=== PATIENT | female | born 1960 | race Caucasian/White ===

== ENCOUNTER → 2017-12-23 | Outpatient (REF) ==
[~2017-12-23] MED LIST: AMLO-96 PO; HYDR-2966 PO; IBUP400T13 PO; METXR500 PO; NAPR220C12 PO; OXYC-869 PO
--- NOTE | 2017-12-23 15:46 | RADIOLOGY IMAGING REPORT ---
FACILITY: [facility] - [place] PATIENT NAME: Dwight Rodriguez : 1960 MR: [id number] V: [id number] EXAM DATE: ORDERING PHYSICIAN: ALEXANDER BRITO TECHNOLOGIST: [facility] Patient: Dwight Rodriguez : 1960 Visit/Account:[id number] Date of Sevice: 12/23/2017 3 views left knee and 3 views right knee Indication: Knee pain. Comparison: None available Findings: Right knee: 3 views of the right knee are obtained. No acute fracture or dislocation is identified. There is mode rate to severe 3 compartment osteoarthritis. Joint space narrowing is most pronounced in the medial c ompartment. No joint effusion. Left knee: 3 views of the left knee are obtained. No acute fracture or dislocation is identified. There is moder ate to severe 3 compartment osteoarthritis most pronounced in the medial and patellofemoral compartme nts. There is a small joint effusion. No definite joint bodies. Impression: 1. Moderate to severe 3 compartment osteoarthritis of the bilateral knees. Report Dictated By: Arvin Taylor at 12/23/2017 3:40 PM Report E-Signed By: Arvin Taylor at 12/23/2017 3:43 PM WSN:[id number]
== END ==
LOC: RAD 14:53
PROVIDERS: ATTEND Orthopaedic Surgery Orthopaedic Surgery of the Spine
DX: M17.0 Bilateral primary osteoarthritis of knee (principal)

== ENCOUNTER 2018-01-27 08:29 | Emergency (ER) | payer SELFPAY ==
--- NOTE | 2018-01-27 08:34 | ER Report ---
History and Physical Time Seen By MD: 08:33 HPI/ROS CHIEF COMPLAINT: Nausea, vomiting blood HISTORY OF PRESENT ILLNESS: Patient is a 57-year-old female who reports to the emergency department for episode of vomiting blood. Patient states she did not sleep well last evening but relates this to drinking "too much caffeine over the weekend". She denies any abdominal pain or chest pain. Around 5:30 6:00 this morning she felt nauseous and had an episode of vomiting that was noted for some "pink blood". She states that after she vomited she felt better and ate a brownie. Approximately 30 minutes later she threw up one more time and had a similar presentation of blood-tinged vomit. She denies any epigastric or abdominal pain she denies chest pain or shortness of breath. Currently she is symptom free. Patient has not taken any [id number] NSAIDs since September 2017. She denies any alcohol use. REVIEW OF SYSTEMS: Constitutional: No fever, no chills. Eyes: No discharge. ENT: No sore throat. Cardiovascular: No chest pain, no palpitations. Respiratory: No cough, no shortness of breath. Gastrointestinal: No abdominal pain, hematemesis Genitourinary: No hematuria. Musculoskeletal: No back pain. Skin: No rashes. Neurological: [No headache.] Allergies: Coded Allergies: No Known Drug Allergies (Unverified , 12/15/15) Home Meds Reported Medications Paroxetine Hcl (PAXIL) 20 Mg Tablet, 20 MG PO QDAY, TAB 01/27/18 Lisinopril (LISINOPRIL) 10 Mg Tablet, 10 MG PO QDAY, TAB 01/27/18 Glyburide (GLYBURIDE) 5 Mg Tab, 5 MG FT, TAB 01/27/18 Atorvastatin Calcium (LIPITOR) 40 Mg Tablet, 1 TAB PO QDAY, TAB 01/27/18 Amlodipine Besylate (AMLODIPINE BESYLATE) 10 Mg Tablet, 1 TAB PO QDAY, TAB 01/27/18 Hydrochlorothiazide (HYDROCHLOROTHIAZIDE) 25 Mg Tablet, 1 TAB PO QDAY, TAB 03/11/15 Discontinued Reported Medications Naproxen Sodium (ALEVE) 220 Mg Capsule, 550 MG PO BID, CAPSULE 06/25/16 Metformin Hcl (METFORMIN HCL ER) 500 Mg Tabcr, 1 TAB PO BID, TAB 03/11/15 Discontinued Scripts Amlodipine Besylate (AMLODIPINE BESYLATE) 5 Mg Tablet, 1 TAB PO QDAY, #30 TAB 0 Refills TAKE ONE TABLET BY MOUTH EVERY DAY Prov:TERRIE ALVAREZ MD 12/04/14 Past Medical/Surgical History Past medical history for headache, osteoarthritis, type II diabetes, depression , cholecystectomy. Hx Smoking: No Smoking Status: Never Smoker Hx Substance Use Disorder: No Hx Alcohol Use: No Constitutional Vital Sign - Last 24 Hours 01/27/18 08:35 Temp 97.5 Pulse 90 Resp 18 B/P (MAP) 148/94 Pulse Ox 91 O2 Delivery Room Air Physical Exam General Appearance: The patient is alert, has no immediate need for airway protection and no signs of toxicity. Eyes: Pupils equal and round no pallor or injection. ENT, Mouth: Mucous membranes are moist. Respiratory: There are no retractions, lungs are clear to auscultation. Cardiovascular: Regular rate and rhythm. Gastrointestinal: Abdomen is soft and non tender, no masses, bowel sounds normal. Neurological: Awake alert nontoxic Skin: Warm and dry, no rashes. Musculoskeletal: Neck is supple non tender. Extremities are nontender, nonswollen and have full range of motion. Medical Decision Making Data Points Result Diagram: 01/27/18 0855 01/27/18 0855 Laboratory Hematology Test 01/27/18 08:55 Red Blood Count 4.61 M/uL (4.17-5.56) Mean Corpuscular Volume 88.0 fL (80.0-96.0) Mean Corpuscular Hemoglobin 29.8 pg (26.0-33.0) Mean Corpuscular Hemoglobin Concent 33.9 g/dL (32.0-36.0) Red Cell Distribution Width 14.4 % (11.5-14.5) Mean Platelet Volume 8.4 fL (7.2-11.1) Neutrophils (%) (Auto) 77.2 % (39.4-72.5) Lymphocytes (%) (Auto) 15.9 % (17.6-49.6) Monocytes (%) (Auto) 4.7 % (4.1-12.4) Eosinophils (%) (Auto) 1.6 % (0.4-6.7) Basophils (%) (Auto) 0.6 % (0.3-1.4) Nucleated RBC Relative Count (auto) 0.0 /100WBC Neutrophils # (Auto) 7.7 K/uL (2.0-7.4) Lymphocytes # (Auto) 1.6 K/uL (1.3-3.6) Monocytes # (Auto) 0.5 K/uL (0.3-1.0) Eosinophils # (Auto) 0.2 K/uL (0.0-0.5) Basophils # (Auto) 0.1 K/uL (0.0-0.1) Nucleated RBC Absolute Count (auto) 0.00 K/uL Sodium Level 142 mmol/L (137-145) Potassium Level 3.5 mmol/L (3.5-5.0) Chloride Level 101 mmol/L (98-107) Carbon Dioxide Level 26 mmol/L (22-31) Blood Urea Nitrogen 20 mg/dl (7-18) Creatinine 1.20 mg/dl (0.52-1.04) Glomerular Filtration Rate Calc 46.6 Random Glucose 182 mg/dl (75-110) Calcium Level 9.2 mg/dl (8.4-10.2) Total Bilirubin 0.3 mg/dl (0.2-1.3) Aspartate Amino Transf (AST/SGOT) 24 U/L (0-35) Alanine Aminotransferase (ALT/SGPT) 29 U/L (0-56) Alkaline Phosphatase 106 U/L (0-126) Total Protein 7.8 g/dl (6.3-8.2) Albumin 4.0 g/dl (3.5-5.0) Lipase 168 U/L (23-300) Helicobacter pylori IgG Antibody Negative (NEGATIVE) Chemistry Test 01/27/18 08:55 White Blood Count 10.0 k/uL (4.5-11.0) Red Blood Count 4.61 M/uL (4.17-5.56) Hemoglobin 13.8 g/dL (12.0-16.0) Hematocrit 40.6 % (34.0-47.0) Mean Corpuscular Volume 88.0 fL (80.0-96.0) Mean Corpuscular Hemoglobin 29.8 pg (26.0-33.0) Mean Corpuscular Hemoglobin Concent 33.9 g/dL (32.0-36.0) Red Cell Distribution Width 14.4 % (11.5-14.5) Platelet Count 318 K/uL (150-450) Mean Platelet Volume 8.4 fL (7.2-11.1) Neutrophils (%) (Auto) 77.2 % (39.4-72.5) Lymphocytes (%) (Auto) 15.9 % (17.6-49.6) Monocytes (%) (Auto) 4.7 % (4.1-12.4) Eosinophils (%) (Auto) 1.6 % (0.4-6.7) Basophils (%) (Auto) 0.6 % (0.3-1.4) Nucleated RBC Relative Count (auto) 0.0 /100WBC Neutrophils # (Auto) 7.7 K/uL (2.0-7.4) Lymphocytes # (Auto) 1.6 K/uL (1.3-3.6) Monocytes # (Auto) 0.5 K/uL (0.3-1.0) Eosinophils # (Auto) 0.2 K/uL (0.0-0.5) Basophils # (Auto) 0.1 K/uL (0.0-0.1) Nucleated RBC Absolute Count (auto) 0.00 K/uL Glomerular Filtration Rate Calc 46.6 Calcium Level 9.2 mg/dl (8.4-10.2) Total Bilirubin 0.3 mg/dl (0.2-1.3) Aspartate Amino Transf (AST/SGOT) 24 U/L (0-35) Alanine Aminotransferase (ALT/SGPT) 29 U/L (0-56) Alkaline Phosphatase 106 U/L (0-126) Total Protein 7.8 g/dl (6.3-8.2) Albumin 4.0 g/dl (3.5-5.0) Lipase 168 U/L (23-300) Helicobacter pylori IgG Antibody Negative (NEGATIVE) EKG/Imaging Imaging X-ray: Chest PA and lateral was obtained. I viewed the images myself on the PACS system. My interpretation of the images is: Negative. The radiologist interpretation had no clinically significant variation from this interpretation. ED Course/Re-evaluation Clinical Indication for ER IV: IV Access ED Course 01/27/2018 9:00:39 am plan at this time will be to check CBC and comprehensive metabolic panel, lipase, H. pylori test. We will perform chest x-ray. We will give IV Pepcid. Decision to Disposition Date: Jan 27, 2018 Decision to Disposition Time: 09:33 Depart Departure Latest Vital Signs Vital Signs Date Time Temp Pulse Resp B/P (MAP) Pulse Ox O2 Delivery O2 Flow Rate FiO2 01/27/18 08:35 97.5 90 18 148/94 91 Room Air Impression: Primary Impression: Hematemesis Condition: Improved Disposition: HOME OR SELF-CARE New Scripts Ondansetron Hcl (ZOFRAN) 4 Mg Tablet 4 MG PO Q8H for Nausea, #15 TAB 0 Refills Prov: VENKATESH LIANG MD 01/27/18 Famotidine (PEPCID) 20 Mg Tablet 20 MG PO QDAY, #10 TAB 0 Refills Prov: VENKATESH LIANG MD 01/27/18 Departure Forms: ER Transition Record, Medications Reconciliation, Off Work/ School Form, School or Work Release?: Work Number of days to be released: 1 Patient Portal Information Patient Instructions: Hematemesis (ED) Additional Instructions: Follow-up as scheduled this Saturday at the [facility]. Problem Qualifiers Primary Impression: Hematemesis Nausea presence: with nausea Qualified Codes: K92.0 - Hematemesis VENKATESH LIANG MD Jan 27, 2018 08:34
[2018-01-27] MEDS ORDERED: PARO-243 PO (08:42)
[2018-01-27] MEDS ORDERED: LISI-362 PO (08:42)
[2018-01-27] MEDS ORDERED: AMLO-99 PO (08:42)
[2018-01-27] MEDS ORDERED: ATOR40TA24 PO (08:42)
[2018-01-27] MEDS ORDERED: GLY5 FT (08:42)
[2018-01-27] MEDS ORDERED: FAMOTIDINE(*) 20MG/50ML PREMIX 50 ML IVPB ONE (08:55)
[2018-01-27 09:09] LABS: PLATELET COUNT, AUTOMATED 318 K/uL (150-450)
--- NOTE | 2018-01-27 09:29 | RADIOLOGY IMAGING REPORT ---
FACILITY: [facility] - [place] PATIENT NAME: Dwight Rodriguez : 1960 MR: [id number] V: [id number] EXAM DATE: ORDERING PHYSICIAN: VENKATESH LIANG TECHNOLOGIST: Location: [facility] Patient: Dwight Rodriguez : 1960 Visit/Account:[id number] Date of Sevice: 01/27/2018 Exam type: CHEST PA AND LAT History: Chest pain Comparison: June 25, 2016. Findings: Again noted is a small amount left basilar scarring. There is no evidence of acute appearing infiltr ates, pleural effusions or overt pulmonary edema. Cardiac silhouette is borderline enlarged but unch anged. There are spondylotic changes in the thoracic spine IMPRESSION: 1. No acute cardiac pulmonary process is seen Small amount left basilar scarring unchanged Borderline cardiomegaly unchanged Report Dictated By: Teri Morales MD at 01/27/2018 9:24 AM Report E-Signed By: Teri Morales MD at 01/27/2018 9:26 AM WSN:[id number]
[2018-01-27] MEDS ORDERED: FAMO20TA28 PO (09:36)
[2018-01-27] MEDS ORDERED: ONDA4TAB97 PO (09:36)
[2018-01-27 09:39] VITALS: BP 135/90
== END 2018-01-27 09:45 | disposition home or self-care (01) ==
LOC: ER 08:41
DX: K92.0 Hematemesis (principal)
CPT/HCPCS: 71046; 83690; 85025; 86677; 96365; 99283; J3490; 82040; 82247; 82310; 82374; 82435; 82565; 82947; 84075; 84132; 84155; 84295; 84450; 84460; 84520

== ENCOUNTER 2019-03-20 07:39 | Emergency (ER) | payer SELFPAY ==
[~2019-03-20 07:39] MED LIST changes: +AMLO-125 PO; +AMLO-127 PO; -AMLO-96 PO; +ATOR40TA24 PO; +FAMO20TA28 PO; +GLY5 FT; +LISI-362 PO; +ONDA4TAB97 PO; +PARO-243 PO
--- NOTE | 2019-03-20 07:44 | ER Report ---
History and Physical Time Seen By MD: 07:40 HPI/ROS CHIEF COMPLAINT: Shortness breath, anxiety HISTORY OF PRESENT ILLNESS: Patient is a 59-year-old female here with complaints of shortness of breath, near-syncope, anxiety. Patient reportedly was walking to her daughter's house when she became short of breath, lightheaded. She has had a similar episode in the past which she attributed to an anxiety attack. Patient does have a history of hypertension, hyperlipidemia. Patient is afebrile, hemodynamically stable at time of evaluation. Denies chest pain, nausea, vomiting. REVIEW OF SYSTEMS: Constitutional: No fever, no chills. Eyes: No discharge. ENT: No sore throat. Cardiovascular: No chest pain, no palpitations. Respiratory: No cough, + shortness of breath. Gastrointestinal: No abdominal pain, no vomiting. Genitourinary: No hematuria. Musculoskeletal: No back pain. Skin: No rashes. Neurological: No headache. Allergies: Coded Allergies: No Known Drug Allergies (Unverified , 12/15/15) Home Meds Reported Medications Glyburide (GLYBURIDE) 5 Mg Tab, 5 MG FT PRN for BID, TAB 04/12/18 Paroxetine Hcl (PAXIL) 20 Mg Tablet, 20 MG PO QDAY, TAB 01/27/18 Lisinopril (LISINOPRIL) 10 Mg Tablet, 10 MG PO QDAY, TAB 01/27/18 Glyburide (GLYBURIDE) 5 Mg Tab, 5 MG FT, TAB 01/27/18 Amlodipine Besylate (AMLODIPINE BESYLATE) 10 Mg Tablet, 1 TAB PO QDAY, TAB 01/27/18 Hydrochlorothiazide (HYDROCHLOROTHIAZIDE) 25 Mg Tablet, 1 TAB PO QDAY, TAB 03/11/15 Hx Smoking: No Smoking Status: Never Smoker Hx Substance Use Disorder: No Hx Alcohol Use: No Constitutional Vital Sign - Last 24 Hours 03/20/19 03/20/19 03/20/19 03/20/19 07:39 07:42 07:53 08:00 Temp 98.2 Pulse 91 108 Resp 18 B/P (MAP) 153/91 (111) 153/91 116/75 (89) Pulse Ox 87 O2 Delivery Room Air O2 Flow Rate 2.0 8/16/19 8/16/19 8/16/19 8/16/19 08:09 08:24 08:30 08:39 Pulse 90 88 90 Resp 14 19 22 B/P (MAP) 110/74 (86) Pulse Ox 95 95 Physical Exam General Appearance: The patient is alert, has no immediate need for airway protection and no signs of toxicity. No acute distress Eyes: Pupils equal and round no pallor or injection. ENT, Mouth: Mucous membranes are moist. Respiratory: There are no retractions, lungs are clear to auscultation. Cardiovascular: Regular rate and rhythm. Gastrointestinal: Abdomen is soft and non tender, no masses, bowel sounds normal. Neurological: No focal neurological deficits, cranial nerves intact Skin: Warm and dry, no rashes. Musculoskeletal: Neck is supple non tender. Extremities are nontender, nonswollen and have full range of motion. DIFFERENTIAL DIAGNOSIS: After history and physical exam differential diagnosis was considered for shortness of breath including but not limited to pulmonary infectious process, COPD, asthma, pulmonary embolus and congestive heart fail ure, anxiety Medical Decision Making Data Points Result Diagram: 03/20/19 0743 03/20/19 0743 Laboratory Hematology Test 03/20/19 07:43 White Blood Count 7.2 k/uL (4.5-11.0) Red Blood Count 4.71 M/uL (4.17-5.56) Hemoglobin 14.0 g/dL (12.0-16.0) Hematocrit 42.0 % (34.0-47.0) Mean Corpuscular Volume 89.1 fL (80.0-96.0) Mean Corpuscular Hemoglobin 29.8 pg (26.0-33.0) Mean Corpuscular Hemoglobin Concent 33.4 g/dL (32.0-36.0) Red Cell Distribution Width 14.0 % (11.5-14.5) Platelet Count 319 K/uL (150-450) Mean Platelet Volume 8.4 fL (7.2-11.1) Neutrophils (%) (Auto) 73.1 % (39.4-72.5) H Lymphocytes (%) (Auto) 18.5 % (17.6-49.6) Monocytes (%) (Auto) 5.3 % (4.1-12.4) Eosinophils (%) (Auto) 2.5 % (0.4-6.7) Basophils (%) (Auto) 0.6 % (0.3-1.4) Nucleated RBC Relative Count (auto) 0.0 /100WBC Neutrophils # (Auto) 5.2 K/uL (2.0-7.4) Lymphocytes # (Auto) 1.3 K/uL (1.3-3.6) Monocytes # (Auto) 0.4 K/uL (0.3-1.0) Eosinophils # (Auto) 0.2 K/uL (0.0-0.5) Basophils # (Auto) 0.0 K/uL (0.0-0.1) Nucleated RBC Absolute Count (auto) 0.00 K/uL Chemistry Test 03/20/19 07:43 Sodium Level 140 mmol/L (137-145) Potassium Level 3.5 mmol/L (3.5-5.0) Chloride Level 103 mmol/L (98-107) Carbon Dioxide Level 25 mmol/L (22-31) Blood Urea Nitrogen 19 mg/dl (7-18) Creatinine 1.30 mg/dl (0.52-1.04) Glomerular Filtration Rate Calc 42.2 Random Glucose 140 mg/dl (75-110) Calcium Level 9.6 mg/dl (8.4-10.2) Total Bilirubin 0.8 mg/dl (0.2-1.3) Aspartate Amino Transf (AST/SGOT) 40 U/L (0-35) Alanine Aminotransferase (ALT/SGPT) 56 U/L (0-56) Alkaline Phosphatase 131 U/L (0-126) Troponin I < 0.012 ng/ml Total Protein 8.3 g/dl (6.3-8.2) Albumin 4.6 g/dl (3.5-5.0) Coagulation Test 03/20/19 07:43 D-Dimer Quantitative (PE/DVT) 0.98 ug/ml (0-0.50) Urinalysis Test 03/20/19 09:23 EKG/Imaging Imaging FACILITY: [facility] - [place] PATIENT NAME: Dwight Rodriguez : 1960 MR: [id number] V: [id number] EXAM DATE: ORDERING PHYSICIAN: LESA COLLAZO TECHNOLOGIST: Location: [facility] - [place] Patient: Dwight Rodriguez : 1960 Visit/Account:[id number] Date of Sevice: 03/20/2019 CT CTA CHEST W & W/O CON HISTORY: Shortness of breath ADDITIONAL HISTORY: None. TECHNIQUE: CTA chest with contrast. 3D coronal slab MIPs and 2D reconstructions in the coronal and sagittal planes were also created. One of the following dose optimization techniques was utilized in the performance of this exam: automated exposure control; adjustment of the mA and/or kv according to patient size; or use of iterative reconstruction technique. Specific details can be referenced in the facility's radiology CT exam operational policy. CONTRAST: 75 mL of Isovue-370 COMPARISON: None. FINDINGS: Vessels: No acute filling defect within the main, lobar or segmental pulmonary arteries. Lower neck: Negative. Heart and pericardium: Negative Mediastinum/hilum/lymph nodes: Negative. Lungs/pleura: Negative. Visualized upper abdomen: Cholecystectomy. Probable hepatic steatosis. Bones/soft tissues: Negative. Other findings: None significant IMPRESSION: 1. Negative examination for acute pulmonary embolism. 2. No other acute chest process identified. Report Dictated By: Rocco Catalan MD at 03/20/2019 9:10 AM Report E-Signed By: Rocco Catalan MD at 03/20/2019 9:18 AM WSN:[id number] ED Course/Re-evaluation ED Course Patient is a 59-year-old female here with complaints of shortness breath, near- syncope, anxiety which started acutely while the patient was walking to her daughter's house. Patient did have a previous episode similar to this which she attributed to anxiety attack. Chest x-ray was initially completed and showed no acute findings. Labs were remarkable for an elevated d-dimer. CT PE came back negative for pulmonary embolism. Patient was well-appearing at time of discharge. Return cautions provided. Close PCP follow-up recommended. Decision to Disposition Date: Mar 20, 2019 Decision to Disposition Time: 09:29 Depart Departure Latest Vital Signs Vital Signs Date Time Temp Pulse Resp B/P (MAP) Pulse Ox O2 Delivery O2 Flow Rate FiO2 03/20/19 08:39 90 22 03/20/19 08:30 110/74 (86) 03/20/19 08:24 95 03/20/19 07:53 2.0 03/20/19 07:42 98.2 Room Air Impression: Primary Impression: Shortness of breath Condition: Improved Disposition: HOME OR SELF-CARE Patient Instructions: Dyspnea (GEN) Additional Instructions: Please follow up closely with your primary care provider. Please return promptly if you develop shortness breath, fevers, chest pain, nausea, vomiting. LESA COLLAZO DO Mar 20, 2019 07:44
[2019-03-20] MEDS ORDERED: NS(*) 0.9% 1000 ML BAG 1,000 ML IV ONE (08:01)
[2019-03-20] MEDS ORDERED: LORazepam 2 MG/ML VIAL IVP ONE (08:05)
[2019-03-20 08:18] LABS: PLATELET COUNT, AUTOMATED 319 K/uL (150-450)
--- NOTE | 2019-03-20 08:29 | RADIOLOGY IMAGING REPORT ---
FACILITY: [facility] PATIENT NAME: Dwight Rodriguez : 1960 MR: [id number] V: [id number] EXAM DATE: ORDERING PHYSICIAN: LESA COLLAZO TECHNOLOGIST: Location: [facility] - [place] Patient: Dwight Rodriguez : 1960 Visit/Account:[id number] Date of Sevice: 03/20/2019 Exam type: CHEST SINGLE AP History: Anxiety attack Comparison: January 27, 2018. Findings: Cardiac silhouette appears mildly enlarged. There is no evidence of overt pulmonary edema or pleural effusions. No evidence of acute-appearing pulmonary consolidation. The trachea is in midline IMPRESSION: 1. Mild cardiomegaly although no evidence of overt pulmonary edema or acute pulmonary infiltrates Report Dictated By: Teri Morales MD at 03/20/2019 8:18 AM Report E-Signed By: Teri Morales MD at 03/20/2019 8:20 AM WSN:[email or web address]
[2019-03-20] MEDS ORDERED: NS(*) 0.9% 50 ML BAG 50 ML ONE (08:48)
[2019-03-20] MEDS ORDERED: IOPAMIDOL 76% 100 ML INFUS BTL 100 ML ONE (08:48)
--- NOTE | 2019-03-20 09:27 | RADIOLOGY IMAGING REPORT ---
FACILITY: [facility] PATIENT NAME: Dwight Rodriguez : 1960 MR: [id number] V: [id number] EXAM DATE: ORDERING PHYSICIAN: LESA COLLAZO TECHNOLOGIST: Location: [facility] Patient: Dwight Rodriguez : 1960 Visit/Account:[id number] Date of Sevice: 03/20/2019 CT CTA CHEST W & W/O CON HISTORY: Shortness of breath ADDITIONAL HISTORY: None. TECHNIQUE: CTA chest with contrast. 3D coronal slab MIPs and 2D reconstructions in the coronal and sagittal planes were also created. One of the following dose optimization techniques was utilized in the performance of this exam: automated exposure control; adjustment of the mA and/or kv according to patient size; or use of iterative reconstruction technique. Specific details can be referenced in [facility]'s radiology CT exam operational policy. CONTRAST: 75 mL of Isovue-370 COMPARISON: None. FINDINGS: Vessels: No acute filling defect within the main, lobar or segmental pulmonary arteries. Lower neck: Negative. Heart and pericardium: Negative Mediastinum/hilum/lymph nodes: Negative. Lungs/pleura: Negative. Visualized upper abdomen: Cholecystectomy. Probable hepatic steatosis. Bones/soft tissues: Negative. Other findings: None significant IMPRESSION: 1. Negative examination for acute pulmonary embolism. 2. No other acute chest process identified. Report Dictated By: Rocco Catalan MD at 03/20/2019 9:10 AM Report E-Signed By: Rocco Catalan MD at 03/20/2019 9:18 AM WSN:[id number]
[2019-03-20 09:30] VITALS: BP 154/94
--- NOTE | 2019-03-20 10:18 | EKG ---
FACILITY: [facility] - [place] PATIENT NAME: MIGUEL ÁNGEL OLVERA : [id number] MR: [id number] V: [id number] EXAM DATE: ORDERING PHYSICIAN: LESA COLLAZO TECHNOLOGIST: YENIFER Test Reason : ANXIETY Blood Pressure : / mmHG Vent. Rate : 088 BPM Atrial Rate : 088 BPM P-R Int : 184 ms QRS Dur : 148 ms QT Int : 448 ms P-R-T Axes : 049 -76 -18 degrees QTc Int : 542 ms Normal sinus rhythm Right bundle branch block Left anterior fascicular block Bifascicular block Abnormal ECG When compared with ECG of 25-JUN-2016 13:40, No significant change was found Confirmed by Lane Jauregui ([id number]) on 03/20/2019 9:02:47 PM Referred By: VALE Confirmed By:Lane Reagan
== END 2019-03-20 09:48 | disposition home or self-care (01) ==
LOC: ER 07:45
DX: R06.02 Shortness of breath (principal)
CPT/HCPCS: 71045; 71275; 81001; 84484; 85025; 85379; 93005; 96361; 96374; 99284; J2060; J7030; J7050; Q9967; 82040; 82247; 82310; 82374; 82435; 82565; 82947; 84075; 84132; 84155; 84295; 84450; 84460; 84520